=== PATIENT | male | born 1995 | race Caucasian/White ===

== ENCOUNTER 2016-11-06 21:18 | Emergency (ER) | payer MEDICAID, OTHER ==
[~2016-11-06] VITALS: Wt 83.0 kg
[~2016-11-06 21:18] MED LIST: ACET500C5 PO; NAPR-260 PO
[2016-11-06] MEDS ORDERED: DIPHTH/TET/ACEL PERTUSS (ADULT) 0.5 ML VIAL IM* ONE (23:00)
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
--- NOTE | 2016-11-06 23:42 | RADRPT ---
PROCEDURE: XR Ribs. CLINICAL INDICATION: Status post trauma to left chest after a fall. TECHNIQUE: Three views of the left ribs were obtained. COMPARISON: Chest x-ray 11/06/2016 FINDINGS: No rib fracture or other focal lesion is identified. The underlying lungs are unremarkable, without pleural effusion or pneumothorax seen. RPTAT:HJJR IMPRESSION: Unremarkable left rib series. García Hill Physician Date Time Electronically viewed and signed by García Hill Physician on 11/06/2016 23:41 JR/
--- NOTE | 2016-11-06 23:42 | RADRPT ---
PROCEDURE: XR Chest. CLINICAL INDICATION: Chest pain following a fall. TECHNIQUE: Portable AP upright view of the chest was obtained. COMPARISON: 02/11/2009 FINDINGS: The cardiomediastinal silhouette is within normal limits. The lungs are clear. There is no evidenc e for pleural effusion, pneumothorax or pulmonary vascular congestion. The osseous structures are i ntact with no evidence for acute abnormality. RPTAT:HJJR IMPRESSION: No evidence for acute intrathoracic pathology. Physician Neo Date Time Electronically viewed and signed by García Hill Physician on 11/06/2016 23:42 JR/
--- NOTE | 2016-11-06 23:43 | RADRPT ---
PROCEDURE: XR left ankle. CLINICAL INDICATION: Post traumatic left lateral ankle pain after a fall TECHNIQUE: AP , oblique and lateral views of theleft ankle were performed. COMPARISON: None. FINDINGS: There is normal mineralization and alignment. No fracture or osseous lesion is identified. The ankle mortis and talar dome are intact. The soft tissues are unremarkable. There is no evidence for a rad iopaque foreign body. RPTAT:HJJR IMPRESSION: Unremarkable left ankle series. Physician Neo Date Time Electronically viewed and signed by Physician Neo on 11/06/2016 23:42 JR/
[2016-11-07] MEDS ORDERED: CEPH-443 PO (00:49)
[2016-11-07] MEDS ORDERED: HYDR-906 PO (00:49)
[2016-11-07] MEDS ORDERED: IBUP-1542 PO (00:49)
[2016-11-07 01:32] VITALS: BP 140/77; PULSE 79; RESP 17; TEMP 98.3
== END 2016-11-07 01:33 | disposition home or self-care (01) ==
LOC: FTE 21:18
DX: S20.212A Contusion of left front wall of thorax, initial encounter (principal); S93.402A Sprain of unspecified ligament of left ankle, initial encounter; J45.909 Unspecified asthma, uncomplicated; V28.4XXA Motorcycle driver injured in noncollision transport accident in traffic accident, initial encounter; Z23 Encounter for immunization
CPT/HCPCS: 71010; 71100; 73610; 90471; 90715

== ENCOUNTER 2017-12-18 01:22 | Emergency (ER) | END 2017-12-18 02:26 | disposition home or self-care (01) ==